=== PATIENT | male | born 1960 | race Caucasian/White ===

== ENCOUNTER 2022-01-20 09:38 | Emergency (ER) | payer BC, SELFPAY ==
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
[2022-01-20 09:42] VITALS: BP 123/81; PULSE 84; RESP 14; TEMP 36.4; O2SAT 100
[2022-01-20] MEDS: MORPHINE SULFATE (*CRX) 2 MG/ML INJ IV PUSH ×2 (10:22→12:02)
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
[2022-01-20 13:12] VITALS: BP 126/74; RESP 16; O2SAT 99
== END 2022-01-20 13:13 | disposition home or self-care (01) ==
PROVIDERS: Emergency Provider Nurse Practitioner Family; PCP Family Medicine
DX: S43.102A Unspecified dislocation of left acromioclavicular joint, initial encounter (principal); S22.42XA Multiple fractures of ribs, left side, initial encounter for closed fracture; E78.5 Hyperlipidemia, unspecified; V86.55XA Driver of 3- or 4- wheeled all-terrain vehicle (ATV) injured in nontraffic accident, initial encounter
CPT/HCPCS: 70450; 71046; 71110; 72125; 73030; 73060; 96374; 96376; 99284; A4565; J2270